=== PATIENT | male | born 1975 | race Two or more races ===

== ENCOUNTER 2018-08-19 11:47 | Inpatient (IN) | payer BC, OTHER ==
[~2018-08-19] VITALS: Ht 185.4 cm; Wt 136.6 kg
[2018-08-19] VITALS (35 sets, daily range): BP systolic 56–98; BP diastolic 27–70
[2018-08-19] MEDS ORDERED: SODIUM BICARBONATE 8.4% INJ 50ML SYRINGE ONE ×2 (11:56→12:20)
[2018-08-19] MEDS ORDERED: MIDAZOLAM DRIP 50 mg/50mL 50 ML IV ONE (12:00)
[2018-08-19] MEDS ORDERED: methylPREDNISolone SOD SUCC 125 MG/2 ML VL ONE (12:02)
[2018-08-19] MEDS ORDERED: NOREPINEPHRINE 8 MG/250ML KIT 250 ML IV ONE (12:06)
[2018-08-19] MEDS: MIDAZOLAM DRIP 50 mg/50mL 50 ML IV SCH (12:09)
[2018-08-19] MEDS: NOREPINEPHRINE 8 MG/250ML KIT 250 ML IV SCH (12:11)
[2018-08-19] MEDS ORDERED: PANTOPRAZOLE 80 MG in SODIUM CHL 0.9% 60 ML IV ONE ×2 (12:15→12:30)
[2018-08-19] MEDS ORDERED: OCTREOTIDE ACETATE 100 MCG in SODIUM CHL 0.9% 50 ML IV ONE (12:15)
[2018-08-19] MEDS ORDERED: EPINEPHrine HCL 1 MG/10 ML SYRG ONE ×2 (12:19→12:34)
[2018-08-19 12:20] LABS: Hemoglobin 13.3 g/dL (13.5-17.5); Red Cell Distribution Width 15.7 % (11.8-14.3)
[2018-08-19 12:21] LABS: Hematocrit 44.5 % (41.0-53.0); Mean Corpuscular Hemoglobin 30.3 pg (28.0-32.0); Mean Corpuscular Hgb Conc. 29.9 g/dL (32.0-36.0); Mean Corpuscular Volume 101.2 fL (80.0-100.0); Platelet Count (auto) 224 10^3/uL (140-450); Red Blood Cells 4.39 10^6/uL (4.5-5.90); White Blood Cell 15.7 10^3/uL (4.4-10.8)
[2018-08-19 12:22] LABS: Basophils % (manual) 0 (0.0-2.0); Blast Cells 0; Eosinophils % (manual) 0 (0-7); Promyelocytes % 0; Reactive Lymphocytes 0
[2018-08-19] MEDS ORDERED: THIAMINE 100mg/ml INJ (200mg/2ml VIAL) IV ONE (12:30)
[2018-08-19] MEDS ORDERED: OCTREOTIDE ACETATE 500 MCG in SODIUM CHL 0.9% 99 ML IV SCH (12:30)
[2018-08-19] MEDS ORDERED: EPINEPHrine HCL INJECTION 4 MG in SODIUM CHL 0.9% 250 ML IV ONE (12:30)
[2018-08-19 12:37] LABS: Albumin 3.1 g/dL (3.4-5.0)
[2018-08-19 12:47] LABS: BUN/Creatinine Ratio 13.7; Bilirubin, Total 0.7 mg/dL (0.2-1.0); Total Protein 6.8 g/dL (6.4-8.2)
[2018-08-19 12:51] LABS: Potassium 6.4 mmol/L (3.5-5.1)
[2018-08-19] MEDS ORDERED: ALBUTEROL SULF 2.5 MG/0.5ML(0.5%) NEB SOLN NEB STA (12:51)
[2018-08-19] MEDS ORDERED: DEXTROSE (50%) 50ML SYRG IV ONE ×2 (13:00→18:59)
[2018-08-19] MEDS ORDERED: SODIUM ZIRCONIUM CYCL 10 GM PAK PO ONE (13:00)
[2018-08-19] MEDS ORDERED: CALCIUM GLUC 4.65meq/50ml D5AE 50 ML IV ONE (13:00)
[2018-08-19] MEDS ORDERED: SODIUM BICARBONATE 8.4% INJ 50ML SYRINGE IV ONE ×2 (13:00→18:59)
[2018-08-19] MEDS ORDERED: EPINEPHrine HCL 1 MG/10 ML SYRG IV ONE ×7 (13:00→18:59)
[2018-08-19] MEDS ORDERED: SODIUM BICARBONATE 8.4 % INJ 50ML VIAL IV ONE ×2 (13:00→14:00)
[2018-08-19] MEDS ORDERED: InsuLIN REG 1unit/0.01ml Soln (100units/ml) IV ONE (13:00)
[2018-08-19] MEDS ORDERED: methylPREDNISolone SOD SUCC 125 MG/2 ML VL IV ONE (13:00)
[2018-08-19 13:02] LABS: Lactic Acid w/Reflex 18.3 mmol/L (0.4-2.0)
[2018-08-19 13:06] LABS: Urine Amorphous Crystal FEW /hpf (None Seen); Urine Bacteria FEW /hpf (None Seen); Urine Blood TRACE /uL (Negative); Urine Specific Gravity 1.024 (1.001-1.035); Urine WBC 5 /hpf (0 - 3)
[2018-08-19] MEDS ORDERED: SODIUM CHLORIDE 0.9% 1,000 ML IV ONE ×4 (13:15→16:00)
[2018-08-19] MEDS ORDERED: SODIUM BICARBONATE 50ML VIAL 150 ML in SOD CHL 0.45% 1,000 ML IV ONE ×2 (13:30→15:00)
[2018-08-19] MEDS: MULTIPLE VITAMIN 10 ML, MAGNESIUM SULF SDV 50% 8 MEQ, THIAMINE INJ 100 MG in SODIUM CHL... IV SCH (13:43)
[2018-08-19] MEDS ORDERED: PHENYLEPHRINE INJ 20 MG in D5W 5% 248 ML IV ONE (13:45)
[2018-08-19] MEDS: SODIUM BICARBONATE 50ML VIAL 150 ML in SOD CHL 0.45% 1,000 ML IV SCH ×2 (14:00→20:52)
--- NOTE | 2018-08-19 14:30 | NUR ---
TRANSPORTED PT TO CT, PT CONNECTED TO EMERGENCY VETERINARY TECHNICIAN, SPO2 97%, HR 71, RR 22. NO INCIDENCE REPORTED. PLACED PT ON PREVIOUS VENT SETTINGS. WILL CONTINUE TO MONITOR PT.
[2018-08-19 15:01] LABS: Band Neutrophils % (manual) 7; Lymphocytes % (manual) 24 (10.0-50.0); Metamyelocytes % 2; Monocytes % (manual) 8 (0-12); Myelocytes % 1
[2018-08-19] MEDS ORDERED: VANCOMYCIN 1GM/250ML 250 ML IV ONE (15:15)
[2018-08-19] MEDS ORDERED: PIPERACILLIN-TAZOB 3.375GM 100 ML IV ONE (15:15)
[2018-08-19] MEDS ORDERED: SODIUM BICARBONATE 50ML VIAL 150 ML in SOD CHL 0.45% 1,000 ML IV SCH ×4 (15:30)
[2018-08-19] MEDS ORDERED: NITROGLYCERIN 0.4 MG SL TAB SL PRN (16:15)
[2018-08-19] MEDS ORDERED: MORPHINE SULF INJ 2 MG/ML SYRINGE 1ML IV PRN (16:15)
[2018-08-19] MEDS ORDERED: PIPERACILLIN-TAZOB 2.25GM 50 ML IV ONE (16:15)
[2018-08-19] MEDS ORDERED: ALBUTEROL SULF 2.5 MG/0.5ML(0.5%) NEB SOLN NEB PRN (16:15)
[2018-08-19 16:25] LABS: Amphetamine Screen, Urine NEGATIVE (NEGATIVE); Barbiturate Scree,Urine NEGATIVE (NEGATIVE); Benzodiazephine Screen, Urine NEGATIVE (NEGATIVE); Cannabinoid Screen, Urine NEGATIVE (NEGATIVE); Cocaine Screen, Urine NEGATIVE (NEGATIVE); Opiate Scree,Urine NEGATIVE (NEGATIVE); Phencyclidine Screen, Urine NEGATIVE (NEGATIVE)
[2018-08-19] MEDS: CLINDAMYCIN 600MG IV 50 ML IV SCH ×2 (16:30→22:00)
[2018-08-19 16:45] LABS: Albumin 2.4 g/dL (3.4-5.0); Calcium 7.3 mg/dL (8.5-10.1); Potassium 5.4 mmol/L (3.5-5.1)
--- NOTE | 2018-08-19 16:55 | NUR ---
UNABLE TO DRAW ABG DUE TO PT'S LOW BP, RN NOTIFIED. WILL INFORMED NOC RT.
--- NOTE | 2018-08-19 17:00 | NUR ---
TRANSPORTED PT FROM ER TO ICU ON 100% FIO2, PEEP VALVE CONNECTED TO AMBUBAG SET AT 8CMH20. TRANSPORTED WITH NO INCIDENT REPORTED.
[2018-08-19 17:08] LABS: BUN/Creatinine Ratio 13.7; Bilirubin, Total 1.7 mg/dL (0.2-1.0); Total Protein 5.9 g/dL (6.4-8.2)
[2018-08-19 17:33] LABS: Lactic Acid w/Reflex 19.7 mmol/L (0.4-2.0)
--- NOTE | 2018-08-19 17:50 | NUR ---
chief medical technologist at bedside.
[2018-08-19 17:52] LABS: INR > 10 (0.9-1.15); Partial Thromboplastin Time > 170.0 sec (23.64-32.05)
--- NOTE | 2018-08-19 17:54 | NUR ---
Hospitalist paged, regarding patient's critical labs, awaiting call back.
--- NOTE | 2018-08-19 18:00 | NUR ---
Patient is guppy breathing, oxygen saturation is 84% On 100% FIO2. Patient is hypotensive, Levophed and Mike increased per protocol. Blood noted coming form patient's mouth, ears, and eyes. Hospitalist paged, awaiting call back.
[2018-08-19] MEDS ORDERED: PHYTONADIONE (VIT K)10 MG/ML 1ML VIAL SUBCUT ONE (18:15)
--- NOTE | 2018-08-19 18:20 | NUR ---
MISSY Alatorre updated regarding patients currents status, orders received.
[2018-08-19] MEDS: VASOPRESSIN 50 UNITS in D5W 5% 247.5 ML IV SCH (18:40)
[2018-08-19] MEDS ORDERED: PHENYLEPHRINE IV 250 ML IV ONE ×2 (18:43→20:57)
[2018-08-19] MEDS: PANTOPRAZOLE 40 MG/10 ML VIAL INJ IV SCH ×2 (18:45→22:00)
[2018-08-19] MEDS: PHENYLEPHRINE INJ 20 MG in SODIUM CHL 0.9% 250 ML IV SCH (18:46)
[2018-08-19] MEDS: IPRATROPIUM BROM 0.5 MG/2.5ML INH SOL NEB SCH (18:51)
[2018-08-19] MEDS: ALBUTEROL SULF 2.5 MG/0.5ML(0.5%) NEB SOLN NEB SCH (18:51)
--- NOTE | 2018-08-19 18:55 | NUR ---
Dr. Martin at bedside.
[2018-08-19] MEDS ORDERED: CALCIUM CHLOR(10%) 100MG/ML 10ML SYRINGE IV ONE (18:59)
[2018-08-19] MEDS ORDERED: MAGNESIUM SULF 50% 40 MEQ/10 ML VL IV ONE (18:59)
[2018-08-19 19:22] LABS: Basophils # (auto) 0 uL; Basophils % (auto) 0.2 % (0.0-2.0); Eosinophils # (auto) 0 uL; Eosinophils % (auto) 0.1 % (0.0-7.0); Hematocrit 34.4 % (41.0-53.0); Hemoglobin 11.1 g/dL (13.5-17.5); Lymphocytes # (auto) 1.9 uL; Mean Corpuscular Hemoglobin 31.5 pg (28.0-32.0); Mean Corpuscular Hgb Conc. 32.2 g/dL (32.0-36.0); Mean Corpuscular Volume 97.9 fL (80.0-100.0); Monocytes # (auto) 0.3 uL; Monocytes % (auto) 2.8 % (0.0-12.0); Neutrophils # (auto) 10.1 uL; Neutrophils % (auto) 81.9 % (37.0-80.0); Nucleated Red Blood Cells % 0.3 %; Platelet Count (auto) 124 10^3/uL (140-450); Red Blood Cells 3.51 10^6/uL (4.5-5.90); Red Cell Distribution Width 15.2 % (11.8-14.3); White Blood Cell 12.3 10^3/uL (4.4-10.8)
[2018-08-19] MEDS ORDERED: DOPamine 1600MCG/ML D5W 250 ML IV ONE ×3 (19:29→22:43)
[2018-08-19] MEDS: ALBUMIN 25% 100 ML IV SCH ×2 (20:00→20:37)
[2018-08-19] MEDS: PHENYLEPHRINE INJ 80 MG in D5W 5% 250 ML IV SCH (20:45)
[2018-08-19] MEDS ORDERED: PHENYLEPHRINE HCL 10 MG/ML VL ONE (21:04)
[2018-08-19] MEDS ORDERED: EPINEPHrine HCL 250 ML IV ONE (21:05)
[2018-08-19] MEDS ORDERED: PHENYLEPHRINE IV 500 ML IV ONE (21:05)
[2018-08-20] VITALS (110 sets, daily range): BP systolic 78–152; BP diastolic 25–73
[2018-08-20] MEDS: IPRATROPIUM BROM 0.5 MG/2.5ML INH SOL NEB SCH ×5 (00:29→23:50)
[2018-08-20] MEDS: ALBUTEROL SULF 2.5 MG/0.5ML(0.5%) NEB SOLN NEB SCH ×6 (00:29→23:53)
[2018-08-20] MEDS ORDERED: DOPamine 1600MCG/ML D5W 250 ML IV ONE ×2 (00:45→02:19)
[2018-08-20 01:35] LABS: Hematocrit 29.6 % (41.0-53.0); Hemoglobin 9.5 g/dL (13.5-17.5); Mean Corpuscular Hemoglobin 31.2 pg (28.0-32.0); Mean Corpuscular Volume 97.7 fL (80.0-100.0); Platelet Count (auto) 86 10^3/uL (140-450); Red Blood Cells 3.03 10^6/uL (4.5-5.90); Red Cell Distribution Width 15.1 % (11.8-14.3); White Blood Cell 7.6 10^3/uL (4.4-10.8)
[2018-08-20 01:50] LABS: Basophils % (manual) 0 (0.0-2.0); Blast Cells 0; Eosinophils % (manual) 0 (0-7); Metamyelocytes % 0; Myelocytes % 0; Promyelocytes % 0; Reactive Lymphocytes 0
[2018-08-20 01:52] LABS: Albumin 2.7 g/dL (3.4-5.0); BUN/Creatinine Ratio 10.5; Potassium 4.2 mmol/L (3.5-5.1)
[2018-08-20 02:01] LABS: INR > 10 (0.9-1.15); Partial Thromboplastin Time > 170.0 sec (23.64-32.05)
[2018-08-20 02:18] LABS: Bilirubin, Total 1.4 mg/dL (0.2-1.0); Total Protein 5.1 g/dL (6.4-8.2)
[2018-08-20 02:28] LABS: Calcium 5.8 mg/dL (8.5-10.1)
[2018-08-20] MEDS: DOPamine 1600MCG/ML D5W 250 ML IV SCH ×6 (02:42→22:20)
[2018-08-20] MEDS: PHENYLEPHRINE INJ 20 MG in SODIUM CHL 0.9% 250 ML IV SCH (03:06)
[2018-08-20 03:47] LABS: Band Neutrophils % (manual) 21; Lymphocytes % (manual) 22 (10.0-50.0); Monocytes % (manual) 2 (0-12)
[2018-08-20] MEDS ORDERED: EPINEPHrine HCL 250 ML IV ONE (03:49)
[2018-08-20] MEDS ORDERED: VASOPRESSIN 20 UNIT/ML ONE (03:56)
[2018-08-20] MEDS: VASOPRESSIN 50 UNITS in D5W 5% 247.5 ML IV SCH ×2 (04:20→16:07)
[2018-08-20] MEDS: EPINEPHrine HCL 250 ML IV SCH ×3 (05:20→18:24)
[2018-08-20 05:27] LABS: Hemoglobin 8.8 g/dL (13.5-17.5)
[2018-08-20 05:29] LABS: Hematocrit 27.8 % (41.0-53.0)
[2018-08-20] MEDS ORDERED: PHENYLEPHRINE IV 250 ML IV ONE (06:17)
[2018-08-20] MEDS ORDERED: NOREPINEPHRINE BITARTRATE 2 ML IV ONE (06:41)
--- NOTE | 2018-08-20 06:43 | NUR ---
Respiratory note: RECEIVED PATIENT ON V20 V200 VENT ORALLY INTUBATED WITH AN 8.0 ETT SECURED VIA KENNY AT THE 24CM MARKING AT THE LIP, AND MECHANICALLY VENTILATED WITH THE ABOVE CHARTED SETTINGS. SPO2 98%, LUNG SOUNDS CLEAR/DIM T/O, NO SECRETIONS WHEN SUCTIONED. SKIN IS COOL/DRY TO THE TOUCH AND IS INTACT NEAR KENNY SITE. THERE IS A NGT IN THE RIGHT NARE AND SECURED TO THE NOSE. NO CENTRAL OR MIDLINE ACCESS NOTED. NON PITTING EDEMA NOTED IN BILATERAL UPPER AND LOWER EXTREMITIES. AM CXR UNAVAILABLE TO VIEW AT THIS TIME. PATIENT IS UNRESPONSIVE TO BOTH VERBAL/TACTILE STIMULI AND IS SEDATED ON A VERSED DRIP. HE IS RESTING COMFORTABLY AND TOLERATING VENT WELL, NO CHANGES MADE. VENT PLUGGED INTO RED OUTLET AND ALL ALARMS ARE SET AND AUDIBLE WILL CONTINUE TO ASSESS PATIENT WELL VENTILATOR FUNCTION. [facility] RUN INLINE.
[2018-08-20] MEDS ORDERED: SODIUM BICARBONATE 8.4 % INJ 50ML VIAL IV ONE ×2 (06:45)
[2018-08-20] MEDS: NOREPINEPHRINE 8 MG/250ML KIT 250 ML IV SCH ×2 (06:46→11:38)
--- NOTE | 2018-08-20 08:04 | NUR ---
PT UNSTABLE FOR TRANSFER TO CT AT THIS TIME PER ZACHARY FLOREZ.
--- NOTE | 2018-08-20 08:15 | NUR ---
DR ZEPEDA UPDATING FAMILY IN WAITING ROOM DR ZEPEDA DISCUSSING PLAN OF CARE WITH PATIENT AND ALL AVAILABLE FAMILY MEMBERS IN THE ICU WAITING ROOM. FAMILY VERBALIZED UNDERSTANDING. NO ORDERS GIVEN AT THIS TIME.
--- NOTE | 2018-08-20 08:30 | NUR ---
Respiratory note: FIO2 DECREASED TO 60% AT THIS TIME. VIKKI SHARMA MADE AWARE OF CHANGE.
--- NOTE | 2018-08-20 08:33 | NUR ---
NEPHROLOGY AT BEDSIDE DR LOU DISCUSSED PLAN OF CARE WITH PATIENT FAMILY. NO ORDERS AT THIS TIME. Addendum: 08/20/18 at 0915 by Raven Benitez RN DISCUSSED DIALYSIS WITH THE FAMILY. VERBAL ORDERS FOR KELVIN CATH PLACEMENT RECEIVED. FAMILY VERBALIZED UNDERSTANDING AND AUTHORIZED DIALYSIS TO PROCEED. DR LOU STATED HE WOULD BE IN LATER TODAY FOR ORDERS.
--- NOTE | 2018-08-20 08:40 | NUR ---
RETURN CALL FROM DR BOBO UPDATED ON PATIENT CURRENT STATUS AND ABG RESULTS, NO ORDERS AT THIS TIME - DR CHASE TO FOLLOW UP.
[2018-08-20] MEDS: SODIUM BICARBONATE 50ML VIAL 150 ML in SOD CHL 0.45% 1,000 ML IV SCH ×4 (08:53→23:37)
[2018-08-20] MEDS: PHENYLEPHRINE INJ 80 MG in D5W 5% 250 ML IV SCH ×5 (08:57→17:10)
[2018-08-20] MEDS ORDERED: CALCIUM GLUC 4.65meq/50ml D5AE 50 ML IV ONE (09:00)
--- NOTE | 2018-08-20 09:21 | NUR ---
THIRD UNIT OF FFP COMPLETED VSS AND DOCUMENTED. NO S/S OF TRANSFUSION REACTION NOTED.
--- NOTE | 2018-08-20 09:23 | NUR ---
Respiratory note: AM CXR ASSESSED AND IT SHOWS ETT IN SATISFACTORY POSITION, SITTING APPROX 4CM ABOVE THE YARIEL. NO INDICATION TO ADJUST TUBE.
--- NOTE | 2018-08-20 09:26 | NUR ---
Midline Placement: Patient educated on need for midline placement. All risks and benefits explained and all questions and concerns addresses prior to procedure. 18g/8cm midline inserted via right basilic vein using Ultrasound. Sterile technique utilized. Blood return obtained from the lumen and flushed easily with NS using proper technique. Midline secured with saline lock; biodisc and occlusive dressing applied. Primary RN notified. Midline lot # [id number]. x1 attempt. Very small vessels due to low blood pressure with multiple vasopressors.
[2018-08-20] MEDS ORDERED: PANTOPRAZOLE 40 MG/10 ML VIAL INJ IV SCH (10:00)
--- NOTE | 2018-08-20 10:15 | NUR ---
Respiratory note: FIO2 DECREASED TO 50% AT THIS TIME. VIKKI SHARMA MADE AWARE OF CHANGES.
--- NOTE | 2018-08-20 10:26 | NUR ---
Respiratory note: VENT CIRCUIT CHANGED TO HEATED WIRE AT THIS TIME. SST RAN AND PASSED.
--- NOTE | 2018-08-20 11:02 | NUR ---
CONSUMER LOAN UNDERWRITER AT BEDSIDE
[2018-08-20] MEDS: PIPERACILLIN-TAZOB 2.25GM 50 ML IV SCH ×4 (11:12→23:38)
--- NOTE | 2018-08-20 11:37 | NUR ---
FAMILY MEMBERS REMAIN AT BEDSIDE MULTIPLE FAMILY MEMBERS IN ICU WAITING ROOM.
--- NOTE | 2018-08-20 11:44 | NUR ---
GI AT BEDSIDE UPDATED ON PATIENT'S STATUS, DRIPS AND BLOOD OUTPUT THROUGH NGT/ORAL AND NASAL. NO ORDERS AT THIS TIME, DR ESQUIVEL TO FOLLOW.
--- NOTE | 2018-08-20 11:47 | NUR ---
Respiratory note: FIO2 DECREASED TO 40% AT THIS TIME. VIKKI SHARMA MADE AWARE OF CHANGE.
[2018-08-20 11:58] LABS: Eosinophils # (auto) 0 uL; Nucleated Red Blood Cells % 0.2 %; Red Blood Cells 2.12 10^6/uL (4.5-5.90)
--- NOTE | 2018-08-20 12:00 | NUR ---
WOUND CARE NOTE: PATIENT ADDED TO SKIN INTEGRITY MONITORING FOR INTUBATION STATUS/LOW LINDSAY SCORE OF 10. PATIENT WAS ADMITTED TO [facility] WITH DIAGNOSIS OF CARDIAC ARREST WITH CPR IN PROGRESS. PATIENT WAS FOUND DOWN BY PARAMEDICS FOR UNKNOWN TIME. HE IS INTUBATED, NON RESPONSIVE. MULTIPLE FAMILY MEMBERS AT BEDSIDE. PATIENT IS WOUND FREE AT THIS TIME, BUT CLOSE SKIN ASSESSMENTS SHOULD BE DONE, PATIENT WAS FOUND DOWN ON GROUND. DEEP TISSUES INJURIES MAY NOT BE EVIDENT FOR SEVERAL HOURS TO DAYS. BEDSIDE NURSE TO NOTIFY WOUND CARE IF ERYTHEMA/ECCHYMOSIS BECOMES EVIDENT ON ANY BONY PROMINENCE. RECOMMEND: FREQUENT TURN SCHEDULE Q 2 HOURS, PRN CONDITION PERMITS, WITH PRESSURE REDISTRIBUTION USING PILLOWS/WEDGES, BID/PRN APPLICATION WITH MOISTURE BARRIER CREAM, COVERING UPPER MEDIAL SACRUM WITH OPTIFOAM GENTLE SACRAL DRESSING PREVENTATIVE, DIETARY CONSULT, CONTINUED MONITORING BY WOUND CARE TEAM. SKIN/WOUND CARE PLAN IMPLEMENTED AT THIS TIME.
[2018-08-20 12:02] LABS: Basophils # (auto) 0.1 uL; Basophils % (auto) 1.2 % (0.0-2.0); Eosinophils % (auto) 0.3 % (0.0-7.0); Lymphocytes # (auto) 0.9 uL; Lymphocytes % (auto) 15.7 % (10.0-50.0); Mean Corpuscular Hemoglobin 31.2 pg (28.0-32.0); Mean Corpuscular Volume 103.9 fL (80.0-100.0); Monocytes # (auto) 0.2 uL; Monocytes % (auto) 2.5 % (0.0-12.0); Neutrophils # (auto) 4.8 uL; Neutrophils % (auto) 80.3 % (37.0-80.0); Platelet Count (auto) 60 10^3/uL (140-450)
[2018-08-20 12:07] LABS: Hemoglobin 6.6 g/dL (13.5-17.5)
--- NOTE | 2018-08-20 12:09 | NUR ---
PAGED DR CIFUENTES REGARDING HGB 6.6, AWAITING CALL BACK.
--- NOTE | 2018-08-20 12:21 | NUR ---
CARLTON FLOREZ FROM [facility] DIALYSIS AT BEDSIDE, AWARE THERE IS NO DIALYSIS ACCESS YET. OBTAINED NUMBER [phone] AND WILL CALL WHEN ACCESS OBTAINED. NURSE TO ALSO CALL COORDINATOR NHI AT [phone] TO VERIFY DIALYSIS. WILL NOTIFY PRIMARY RN ZACHARY WHEN BACK FROM LUNCH BREAK.
[2018-08-20 12:33] LABS: Partial Thromboplastin Time 80.2 sec (23.64-32.05)
[2018-08-20 12:34] LABS: INR > 8.0 (0.9-1.15)
--- NOTE | 2018-08-20 12:39 | NUR ---
PAGED DR CIFUENTES FOR SECOND TIME REGARDING HGB LEVEL
--- NOTE | 2018-08-20 12:41 | NUR ---
SPOKE WITH DR PRINCE MATHIS HGB LEVEL. NO NEW ORDERS UNTIL HE SPEAKS WITH .
[2018-08-20] MEDS: MIDAZOLAM DRIP 50 mg/50mL 50 ML IV SCH (12:47)
[2018-08-20] MEDS: CLINDAMYCIN 600MG IV 50 ML IV SCH ×3 (12:49→21:30)
--- NOTE | 2018-08-20 12:56 | NUR ---
FAMILY AT BEDSIDE/PAGED DR CIFUENTES PATIENT'S SPOUSE AT BEDSIDE, PAGED DR CIFUENTES TO NOTIFY OF SPOUSE AT BEDSIDE, VERBALIZED UNDERSTANDING.
--- NOTE | 2018-08-20 13:04 | NUR ---
DR CHASE AT BEDSIDE UPDATED ON PATIENT'S STATUS, DRIPS, LABS AND IMAGING. PENDING ORDERS. Addendum: 08/20/18 at 1329 by Raven Benitez RN DR CHASE, DISCUSSED PLAN OF CARE AND PROGNOSIS WITH PATIENT'S SPOUSE AND ELDEST BROTHER AT BEDSIDE, ORDERS TO DECREASE PEEP TO 5 RECEIVED, [place].
[2018-08-20 13:07] LABS: Calcium 10.6 mg/dL (8.5-10.1); Magnesium 2.5 mg/dL (1.6-2.6); Potassium 3.9 mmol/L (3.5-5.1)
[2018-08-20 13:27] LABS: Albumin 2.2 g/dL (3.4-5.0); BUN/Creatinine Ratio 8.5; Bilirubin, Total 1.7 mg/dL (0.2-1.0); Total Protein 4.3 g/dL (6.4-8.2)
--- NOTE | 2018-08-20 13:29 | NUR ---
HOSPITALIST AT BEDSIDE DR CIFUENTES DISCUSSED PROGNOSIS AND PLAN OF CARE WITH PATIENT'S SPOUSE AND ELDEST BROTHER AT BEDSIDE, FAMILY MEMBERS REQUESTING CONTINUED ARE AND FULL CODE AT THIS TIME. ORDERS RECEIVED.
--- NOTE | 2018-08-20 13:44 | NUR ---
Respiratory note: PEEP DECREASED TO [address] CHASE'S ORDER. VIKKI SHARMA MADE AWARE OF CHANGE.
[2018-08-20] MEDS ORDERED: PHYTONADIONE (VIT K)10 MG/ML 1ML VIAL SUBCUT ONE ×3 (13:45→22:00)
--- NOTE | 2018-08-20 14:06 | NUR ---
CALL RECEIVED FROM PHARMACISTS/PAGED HOSPITALIST PER PHARMACISTS, VITAMIN K SQ RECOMMENDED DOSE IS 10 MG BID - REQUESTED TO CHANGE. PAGED DR CIFUENTES, AWAITING RESPONSE.
--- NOTE | 2018-08-20 14:13 | NUR ---
[facility] SPOKE WITH DONNIE - POSSIBLE CANDIDATE, COORDINATOR WILL BE HERE LATER THIS EVENING. REFENCE# [id number].
--- NOTE | 2018-08-20 14:30 | NUR ---
SECOND PAGE TO HOSPITALIST TO NOTIFY OF PHARMACY RECOMMENDATIONS REGARDING VITAMIN K, AWAITING RESPONSE.
[2018-08-20] MEDS ORDERED: OCTREOTIDE ACETATE 100 MCG in SODIUM CHL 0.9% 50 ML IV ONE (14:45)
--- NOTE | 2018-08-20 14:51 | NUR ---
1ST UNIT PRBC TRANSFUSING/DR ESQUIVEL AT BEDSIDE FIRST UNIT PRBC TRANSFUSING, VSS AND DOCUMENTED - FAMILY AT BEDSIDE. WILL MONITOR FOR S/S OF TRANSFUSION REACTION. DR ESQUIVEL AT BEDSIDE, UPDATED ON PATIENT'S STATUS. ORDERS TO BE ENTERED BY DR ESQUIVEL.
--- NOTE | 2018-08-20 15:00 | NUR ---
PAGED DR LOU TO NOTIFY OF NO DIALYSIS CATHETER PLACEMENT DUE TO INCREASED RISK OF BLEEDING PER DR CIFUENTES. AWAITING RESPONSE.
--- NOTE | 2018-08-20 15:09 | NUR ---
15 MIN TRANSFUSION REASSESSMENT VSS AND DOCUMENTED, NO S/S NOTED OF TRANSFUSION REACTION. FAMILY AT BEDSIDE.
--- NOTE | 2018-08-20 15:16 | NUR ---
THIRD PAGE TO HOSPITALIST DR CIFUENTES PAGED TO NOTIFY OF PHARMACY RECOMMENDATIONS REGARDING VITAMIN K AND CRITICAL LAB VALUES, AWAITING RESPONSE.
--- NOTE | 2018-08-20 15:20 | NUR ---
RETURN CALL FROM VANE CIFUENTES UPDATED ON CRITICAL LABS, VS AND DRIPS WELL PHARMACY RECOMMENDATION ON VIT K. ORDERS RECEIVED TO CHANGE FROM VITAMIN K FROM 20 MG TO 10 MG BID.
--- NOTE | 2018-08-20 15:45 | NUR ---
BEAR MICHELLEGGER REMOVED PATIENT'S CURRENT RECTAL TEMPERATURE 98.6. REMOVED DIEGO MARTINEZGGER, WILL MONITOR. SPOUSE AT BEDSIDE.
--- NOTE | 2018-08-20 15:50 | NUR ---
SPOKE WITH DR LOU/DR RACHAEL LOU NOTIFIED OF DR CIFUENTES'S ORDER TO HOLD OFF ON DIALYSIS CATHETER PLACEMENT. DR LOU VERBALIZED DISAGREEMENT AND WANTED ER PHYSICIAN TO INSERT DIALYSIS CATHETER STAT. DR PUTNAM AWARE. PATIENT'S SPOUSE AGREED TO HAVE CATHETER PLACED AFTER ALL. SPOKE WITH DR CANO, DR CANO UPDATED ON CONSULT AND PATIENT STATUS. DR CANO TO SEE PATIENT SOON.
[2018-08-20] MEDS: MULTIPLE VITAMIN 10 ML, MAGNESIUM SULF SDV 50% 8 MEQ, THIAMINE INJ 100 MG in SODIUM CHL... IV SCH (16:00)
[2018-08-20] MEDS: PANTOPRAZOLE 40 MG/10 ML VIAL INJ IV SCH ×2 (16:16→21:29)
--- NOTE | 2018-08-20 16:28 | NUR ---
CARDIOLOGY AT BEDSIDE CARDIOLOGY MANAGER INSPECTION AT BEDSIDE, UPDATED ON PATIENT'S STATUS AND REASON FOR CONSULT. NO ORDERS AT THIS TIME.
[2018-08-20] MEDS ORDERED: PHENYLEPHRINE INJ 80 MG in SODIUM CHL 0.9% 250 ML IV SCH (16:41)
[2018-08-20] MEDS ORDERED: HEPARIN 1,000 UNITS/ml 1ML VIAL IV ONE ×2 (16:45→17:45)
--- NOTE | 2018-08-20 16:49 | NUR ---
ER PHYSICIAN AT BEDSIDE KELVIN CATHETER AND ARTERIAL LINE PLACEMENT.
[2018-08-20] MEDS ORDERED: DEXTROSE (50%) 50ML SYRG IV PRN ×2 (17:00→17:45)
--- NOTE | 2018-08-20 17:00 | NUR ---
1ST UNIT PRBC COMPLETED/1 UNIT FFP TRANSFUSING FIRST UNIT PRBC TRANSFUSED, ONE UNIT FFP TRANSFUSING. VSS AND DOCUMENTED, NO S/S NOTED OF TRANSFUSION REACTION. WILL MONITOR FOR S/S OF TRANSFUSION REACTION.
--- NOTE | 2018-08-20 17:17 | NUR ---
OK TO USE CATHETER/DIALYSIS NURSE AT BEDSIDE OK TO USE DIALYSIS CATHETER PER DR PUTNAM AFTER REVIEW OF PORTABLE CXR. DIALYSIS NURSE AT BEDSIDE, FAMILY AWARE.
--- NOTE | 2018-08-20 18:01 | NUR ---
BS/DR LOU AT BEDSIDE CURRENT BS 338, WILL GIVE ONE TIME DOSE OF INSULIN. DR LOU AWARE OF DIALYSIS AT BEDSIDE. NO FURTHER ORDERS GIVEN AT THIS TIME.
[2018-08-20] MEDS: OCTREOTIDE ACETATE 500 MCG in SODIUM CHL 0.9% 99 ML IV SCH (18:05)
[2018-08-20] MEDS ORDERED: InsuLIN REG 1unit/0.01ml Soln (100units/ml) IV ONE (18:15)
--- NOTE | 2018-08-20 18:33 | NUR ---
1 UNIT FFP TRANSFUSION COMPLETED VSS AND DOCUMENTED, NO S/S NOTED OF TRANSFUSION REACTION. WILL ENDORSE THE REMAINING 1 UNIT PRBC AND 1 UNIT PLATELET TO EDUCATION COURSES SALES REPRESENTATIVE RN. DIALYSIS NURSE REMAINS AT BEDSIDE.
[2018-08-20] MEDS: CALCIUM GLUC 4.65meq/50ml D5AE 50 ML IV SCH ×2 (19:30→20:30)
--- NOTE | 2018-08-20 19:30 | NUR ---
REPORT RECEIVED, ASSUMED CARE.
[2018-08-20] MEDS ORDERED: ACCU-CHEK COMFORT CURVE STRIP VI SCH (20:00)
[2018-08-20] MEDS ORDERED: InsuLIN REG 1unit/0.01ml Soln (100units/ml) SC SCH (20:00)
[2018-08-20] MEDS: ACCU-CHEK COMFORT CURVE STRIP VI SCH ×2 (20:28→23:37)
[2018-08-20] MEDS: InsuLIN REG 1unit/0.01ml Soln (100units/ml) SC SCH ×2 (20:28→23:38)
[2018-08-20] MEDS: NOREPINEPHRINE BITARTRATE 32 MG in D5W 5% 218 ML IV SCH (20:29)
--- NOTE | 2018-08-20 20:42 | NUR ---
TRIED CALLING BLOOD BANK AND LAB NO ANSWER, NOTIFIED FARM MACHINERY ASSEMBLER. WILL TRY AGAIN.
--- NOTE | 2018-08-20 21:55 | NUR ---
RX CALLED WANTED ME CLARIFY ORDER FOR CA GLU IVPB ORDER PLACED THIS EVENING WHEN PT CA 10.6. LEFT MESSAGE WITH ANSWERING SERVICE.
[2018-08-20] MEDS ORDERED: FAMOTIDINE (10MG/ML) 2ML VL IV SCH (22:00)
--- NOTE | 2018-08-20 22:26 | NUR ---
ORDER FOR CA GLU CANCELLED PER MD MONTES.
[2018-08-21] VITALS (104 sets, daily range): BP systolic 54–154; BP diastolic 37–70
[2018-08-21 00:17] LABS: Basophils # (auto) 0 uL; Eosinophils # (auto) 0.1 uL; Mean Corpuscular Volume 90.9 fL (80.0-100.0); Monocytes # (auto) 0.2 uL
[2018-08-21 00:18] LABS: Basophils % (auto) 0.2 % (0.0-2.0); Eosinophils % (auto) 0.9 % (0.0-7.0); Hematocrit 22.2 % (41.0-53.0); Hemoglobin 7.5 g/dL (13.5-17.5); Lymphocytes # (auto) 0.7 uL; Lymphocytes % (auto) 7.1 % (10.0-50.0); Mean Corpuscular Hemoglobin 30.5 pg (28.0-32.0); Mean Corpuscular Hgb Conc. 33.6 g/dL (32.0-36.0); Monocytes % (auto) 2.1 % (0.0-12.0); Neutrophils % (auto) 89.7 % (37.0-80.0); Nucleated Red Blood Cells % 0.2 %; Platelet Count (auto) 72 10^3/uL (140-450); Red Blood Cells 2.44 10^6/uL (4.5-5.90); Red Cell Distribution Width 15.2 % (11.8-14.3)
[2018-08-21] MEDS: OCTREOTIDE ACETATE 500 MCG in SODIUM CHL 0.9% 99 ML IV SCH ×2 (00:45→15:21)
--- NOTE | 2018-08-21 01:36 | NUR ---
PLACED PT ON WARMING MEASURES.
--- NOTE | 2018-08-21 01:45 | NUR ---
NOTIFIED HOSPITALIST OF CBC RESULTS POST TRANSFUSION, NO NEW ORDERS. WILL CONT TO MONITOR AND GIVE IN REPORT.
[2018-08-21] MEDS: DOPamine 1600MCG/ML D5W 250 ML IV SCH ×2 (01:48→11:08)
--- NOTE | 2018-08-21 02:24 | NUR ---
NOTIFIED HOUSE THE NEED FOR SANDOSTATIN AND VASOPRESSIN GTT'S.
[2018-08-21] MEDS ORDERED: OCTREOTIDE ACETATE 500 MCG/ML VL ONE (02:26)
--- NOTE | 2018-08-21 02:29 | NUR ---
[facility] CALLED: SPOKE WITH CODY GAVE UPDATE ON PT. THEY WILL CONT TO FOLLOW PT. WILL PASS ON IN REPORT.
[2018-08-21] MEDS ORDERED: VASOPRESSIN 20 UNIT/ML ONE (02:40)
[2018-08-21] MEDS: PHENYLEPHRINE INJ 80 MG in D5W 5% 250 ML IV SCH ×4 (02:58→23:45)
[2018-08-21] MEDS: EPINEPHrine HCL 250 ML IV SCH ×3 (02:59→15:21)
[2018-08-21] MEDS: ACCU-CHEK COMFORT CURVE STRIP VI SCH ×5 (04:12→20:20)
[2018-08-21] MEDS: InsuLIN REG 1unit/0.01ml Soln (100units/ml) SC SCH ×5 (04:13→20:20)
[2018-08-21 04:26] LABS: Albumin 2.3 g/dL (3.4-5.0); BUN/Creatinine Ratio 6.4; Potassium 3.9 mmol/L (3.5-5.1)
[2018-08-21 04:41] LABS: Calcium 5.6 mg/dL (8.5-10.1); INR > 8.0 (0.9-1.15)
[2018-08-21 04:53] LABS: Bilirubin, Total 3.2 mg/dL (0.2-1.0); Total Protein 4.2 g/dL (6.4-8.2)
[2018-08-21 04:56] LABS: Basophils # (auto) 0 uL; Basophils % (auto) 0.1 % (0.0-2.0); Hematocrit 21.3 % (41.0-53.0); Hemoglobin 7.1 g/dL (13.5-17.5); Mean Corpuscular Volume 91.1 fL (80.0-100.0); Monocytes # (auto) 0.2 uL; Nucleated Red Blood Cells % 0.1 %; Red Blood Cells 2.34 10^6/uL (4.5-5.90); Red Cell Distribution Width 15.3 % (11.8-14.3); White Blood Cell 11.4 10^3/uL (4.4-10.8)
[2018-08-21 04:59] LABS: Eosinophils # (auto) 0.1 uL; Eosinophils % (auto) 1.1 % (0.0-7.0); Lymphocytes # (auto) 0.5 uL; Lymphocytes % (auto) 4.6 % (10.0-50.0); Mean Corpuscular Hemoglobin 30.2 pg (28.0-32.0); Mean Corpuscular Hgb Conc. 33.1 g/dL (32.0-36.0); Monocytes % (auto) 1.8 % (0.0-12.0); Neutrophils # (auto) 10.6 uL; Neutrophils % (auto) 92.4 % (37.0-80.0); Platelet Count (auto) 59 10^3/uL (140-450)
--- NOTE | 2018-08-21 05:13 | NUR ---
NOTIFIED HOSPITALIST OF CA 5.6, OBTAINED NEW ORDERS. WILL CONT TO MONITOR AND GIVE IN REPORT.
[2018-08-21] MEDS ORDERED: CALCIUM CHL 100MG/ML 1,000 MG in D5W 5% 100 ML IV ONE (05:15)
[2018-08-21] MEDS: SODIUM BICARBONATE 50ML VIAL 150 ML in SOD CHL 0.45% 1,000 ML IV SCH ×4 (05:35→22:35)
[2018-08-21] MEDS: CLINDAMYCIN 600MG IV 50 ML IV SCH ×3 (05:35→21:55)
[2018-08-21] MEDS: PIPERACILLIN-TAZOB 2.25GM 50 ML IV SCH ×4 (05:36→23:40)
[2018-08-21] MEDS ORDERED: CALCIUM CHLOR(10%) 100MG/ML 10ML SYRINGE IV ONE (06:01)
[2018-08-21] MEDS: IPRATROPIUM BROM 0.5 MG/2.5ML INH SOL NEB SCH ×3 (06:31→18:45)
[2018-08-21] MEDS: ALBUTEROL SULF 2.5 MG/0.5ML(0.5%) NEB SOLN NEB SCH ×3 (06:31→18:45)
--- NOTE | 2018-08-21 06:53 | NUR ---
Respiratory note: RECEIVED PATIENT ON V20 V200 VENT ORALLY INTUBATED WITH AN 8.0 ETT SECURED VIA KENNY AT THE 24CM MARKING AT THE LIP, AND MECHANICALLY VENTILATED WITH THE ABOVE CHARTED SETTINGS. SPO2 95%, LUNG SOUNDS RHONCHI T/O, SCANT AMOUNT OF RED/BLOODY SECRETIONS WHEN SUCTIONED. SKIN IS WARM/DRY TO THE TOUCH AND IS INTACT NEAR KENNY SITE. THERE IS A NGT IN THE RIGHT NARE AND SECURED TO THE NOSE; LARGE AMOUNT OF BLEEDING NOTED FROM NARES. HE HAS A KELVIN CATHETER PLACED IN THE RIGHT SIDE NECK, A MIDLINE CATHETER PLACED IN THE RIGHT UPPER ARM. PITTING EDEMA NOTED IN BILATERAL UPPER AND LOWER EXTREMITIES. AM CXR UNAVAILABLE TO VIEW AT THIS TIME. PATIENT IS UNRESPONSIVE TO BOTH VERBAL/TACTILE STIMULI AND IS SEDATED ON A VERSED DRIP. HE IS RESTING COMFORTABLY AND TOLERATING VENT WELL, NO CHANGES MADE. VENT PLUGGED INTO RED OUTLET AND ALL ALARMS ARE SET AND AUDIBLE WILL CONTINUE TO ASSESS PATIENT WELL VENTILATOR FUNCTION. [facility] [facility] [employer] RUN INLINE.
--- NOTE | 2018-08-21 07:30 | NUR ---
PT UNSTABLE FOR TRANSFER TO CT AT THIS TIME.
--- NOTE | 2018-08-21 07:30 | NUR ---
OPENING SHIFT NOTE/UNABLE TO TURN REPORT RECEIVED FROM NIGHT SHIT RN, MORNING ASSESSMENT PERFORMED AND DOCUMENTED. POC REVIEWED, AT THIS TIME PATIENT IS INTUBATED, NON RESPONSIVE, PUPILS FIXED AT 5 MM. NO BABINSKI REFLEX, NO COUGH OR GAG ASSESSED, VSS AND CONTINUES INFUSING VASOPRESSORS X5 ORDERED BY MD. IV SITES PATENT, RIGHT SIDE NECK KELVIN CATHETER SITE ENFORCED BY PRIMER WATERPROOFING MACHINE ADJUSTER RN DUE TO DRAINING BLOOD THROUGH INSERTION SITE. PATIENT NOTED TO HAVE INCREASED WATERY, BRIGHT RED BLOOD DRAINING CONTINUOUSLY FROM MOUTH AND NARES - UNABLE TO TURN PATIENT AT THIS TIME DUE TO RISK OF INCREASED BLEEDING AND INSTABILITY - CHARGE NURSE COREY AND ICU DIRECTOR MELLY NOTIFIED. BILATERAL UPPER AND LOWER EXTREMITIES OFF LOADED. BED LOCKED AND IN LOWEST POSITION, SAFETY AND COMFORT PRECAUTIONS INITIATED. BVM AND SUCTION AT BEDSIDE. WILL MONITOR PATIENT CONTINUOUSLY.
--- NOTE | 2018-08-21 07:50 | NUR ---
DR LOU AT BEDSIDE UPDATED ON PATIENT'S STATUS, DRIPS, LABS AND NEURO STATUS. NO VERBAL ORDERS GIVEN AT THIS TIME. WILL CONTINUE TO MONITOR.
--- NOTE | 2018-08-21 08:15 | NUR ---
DR ZEPEDA AT BEDSIDE UPDATED ON PATIENT'S STATUS, LABS, DRIPS AND NEURO STATUS. ORDERS FOR ECG RECEIVED.
--- NOTE | 2018-08-21 08:31 | NUR ---
ECG TECH/FAMILY AT BEDSIDE PATIENT'S BROTHERS X2 AT BEDSIDE, UPDATED ON PATIENT'S STATUS. AWARE OF PENDING ECG, VERBALIZED UNDERSTANDING. ECG TECH AT BEDSIDE.
--- NOTE | 2018-08-21 09:22 | NUR ---
FAMILY AT BEDSIDE PATIENT'S SPOUSE AND BROTHERS X2 AT BEDSIDE, UPDATED ON PATIENT'S STATUS INCLUDING INCREASED BLEEDING AND NEURO STATUS. TEREZA VERBALIZED UNDERSTANDING.
--- NOTE | 2018-08-21 09:35 | NUR ---
ELECTROENCEPHALOGRAM COMPLETED AT BEDSIDE. VIKKI SHARMA NOTIFIED AND AT BEDSIDE.
--- NOTE | 2018-08-21 10:30 | NUR ---
COMFORT MEASURES/NO TURN/[facility] COMFORT MEASURES PROVIDED, PATIENT CLEANSED OF MODERATE AMOUNT BRIGHT RED BLOOD DRAINING ON FACIAL TOWELS AND GAUZE. MODERATE BRIGHT RED BLOOD SUCTIONED FROM ORAL CAVITY. WET WASHCLOTH PLACED ON EYES EYES REMAIN OPEN AND INCREASED SCLERAL EDEMA AROUND EYES TO AVOID DRYNESS OF EYES. UNABLE TO TURN PATIENT AT THIS TIME DUE TO INSTABILITY AND INCREASED BLEEDING. RECEIVED CALL FROM [facility] - UPDATE PROVIDED.
[2018-08-21] MEDS: PANTOPRAZOLE 40 MG/10 ML VIAL INJ IV SCH ×2 (11:07→21:55)
--- NOTE | 2018-08-21 11:26 | NUR ---
NUTRITION CONSULT/ASSESSMENT NOTES Please refer to link notes of nutrition screen form filed under the intervention section of the plan of care for further details. Est. Needs: 1850 kcal to 2450 kcal (15-20 kcal/kgBW), 67 gms to 84 gms pro (0.8-1.0 gms/kgIBW: 84 kg). Will continue to monitor pertinent labs and reassess nutrient need prn Thank you for this consult. Addendum: 08/21/18 at [address] Amended: Links added.
--- NOTE | 2018-08-21 11:51 | NUR ---
DR ESQUIVEL AT BEDSIDE UPDATED ON PATIENT'S STATUS, LABS, DRIPS, VS AND NEURO STATUS. ORDERS TO TRANSFUSE [address] ESQUIVEL DISCUSSED PLAN OF CARE WITH PATIENT'S ELDEST BROTHER AND PATIENT'S MOTHER AT BEDSIDE.
[2018-08-21] MEDS: MULTIPLE VITAMIN 10 ML, MAGNESIUM SULF SDV 50% 8 MEQ, THIAMINE INJ 100 MG in SODIUM CHL... IV SCH (11:54)
--- NOTE | 2018-08-21 12:00 | NUR ---
NO TURN PATIENT UNSTABLE, PATIENT CLEANSED OF BRIGHT RED BLOOD. UNSTABLE TO TURN AT THIS TIME.
--- NOTE | 2018-08-21 12:09 | NUR ---
BLOOD BANK TO THAW OUT FIRST UNIT FFP. WILL NOTIFY THIS NURSE WHEN AVAILABLE.
[2018-08-21] MEDS: MIDAZOLAM DRIP 50 mg/50mL 50 ML IV SCH (12:47)
--- NOTE | 2018-08-21 13:36 | NUR ---
FIRST UNIT FFP TRANSFUSING VSS AND DOCUMENTED, WILL MONITOR FOR S/S OF TRANSFUSION REACTION. FAMILY AT BEDSIDE.
--- NOTE | 2018-08-21 14:06 | NUR ---
TRANSFUSION ASSESSMENT VSS AND DOCUMENTED, NO S/S NOTED TRANSFUSION REACTION. FAMILY AT BEDSIDE.
[2018-08-21 14:59] LABS: Monocytes # (auto) 0.1 uL; Monocytes % (auto) 1.1 % (0.0-12.0); Platelet Count (auto) 56 10^3/uL (140-450)
--- NOTE | 2018-08-21 15:14 | NUR ---
ONE UNIT FFP TRANSFUSION COMPLETE VSS AND DOCUMENTED. NO S/S NOTED OF TRANSFUSION REACTION.
--- NOTE | 2018-08-21 15:17 | NUR ---
PATIENT TURN/LOW TEMP PATIENT TURNED TO LEFT SIDE WITH HOB ELEVATED 30 DEGREES, UNABLE TO COMPLETELY TURN TO MONITOR SACRUM DUE TO INSTABILITY. CONTINUED INCREASED BRIGHT RED BLOOD DRAINING FROM LEFT NOSTRIL AND NGT. PATIENT CLEANSED AND WILL BE MONITORED. BEAR HUGGER IN PLACE, PATIENT'S RECTAL TEMPERATURE 97.2. WILL MONITOR. FAMILY AT BEDSIDE.
[2018-08-21 15:18] LABS: Basophils % (auto) 0.9 % (0.0-2.0); Eosinophils % (auto) 1.1 % (0.0-7.0); Lymphocytes % (auto) 2.7 % (10.0-50.0); Neutrophils % (auto) 94.2 % (37.0-80.0); White Blood Cell 12.9 10^3/uL (4.4-10.8)
[2018-08-21 15:24] LABS: Neutrophils # (auto) 12.2 uL
[2018-08-21 15:25] LABS: Basophils # (auto) 0.1 uL; Eosinophils # (auto) 0.1 uL; Hematocrit 20.6 % (41.0-53.0); Hemoglobin 7.1 g/dL (13.5-17.5); Lymphocytes # (auto) 0.4 uL; Mean Corpuscular Hemoglobin 30.5 pg (28.0-32.0); Mean Corpuscular Hgb Conc. 34.4 g/dL (32.0-36.0); Mean Corpuscular Volume 88.6 fL (80.0-100.0); Red Blood Cells 2.33 10^6/uL (4.5-5.90)
[2018-08-21 15:26] LABS: Red Cell Distribution Width 15.1 % (11.8-14.3)
--- NOTE | 2018-08-21 15:33 | NUR ---
SECOND UNIT FFP TRANSFUSING VSS AND DOCUMENTED. WILL MONITOR FOR S/S OF TRANSFUSION REACTION.
[2018-08-21] MEDS: NOREPINEPHRINE BITARTRATE 32 MG in D5W 5% 218 ML IV SCH (15:35)
--- NOTE | 2018-08-21 16:00 | NUR ---
TRANSFUSION REASSESSMENT VSS AND DOCUMENTED. NO S/S NOTED OF TRANSFUSION REACTION. PATIENT'S MOTHER AND FRIEND AT BEDSIDE.
[2018-08-21 16:09] LABS: INR > 8.0 (0.9-1.15)
--- NOTE | 2018-08-21 17:08 | NUR ---
SECOND UNIT FFP TRANSFUSION COMPLETE VSS AND DOCUMENTED. NO S/S NOTED OF TRANSFUSION REACTION. DIEGO DUMONT DISCONTINUED - CURRENT RECTAL TEMPERATURE 98.2.
[2018-08-21] MEDS: VASOPRESSIN 50 UNITS in D5W 5% 247.5 ML IV SCH (18:15)
--- NOTE | 2018-08-21 18:55 | NUR ---
PAGED DR CHASE TO NOTIFY OF CURRENT SATURATION 87-90% ON 100% FIO2, MESSAGE LEFT WITH ANSWERING SERVICE-AWAITING RESPONSE.
--- NOTE | 2018-08-21 19:13 | NUR ---
END OF SHIFT NOTE CONTINUED MECHANICALLY VENTILATED, NO CHANGE ON DRIPS, NON RESPONSIVE, CONTINUED BLEEDING. MULTIPLE FAMILY MEMBERS AT BEDSIDE THROUGHOUT SHIFT. FAMILY UPDATED ON PATIENT STATUS AT ALL TIMES. PENDING RETURN CALL FROM DR CHASE. ENDORSED CONTINUED CARE TO SLP TEACHER RN.
--- NOTE | 2018-08-21 19:42 | NUR ---
RETURN CALL FROM DR CHASE UPDATED ON SATURATION AND VENT SETTINGS. ORDERS TO INCREASE PEEP TO 7 OR 8 WITH NO REPEAT ABG. VIKKI SAENZ. AWARE AND ENDORSED CARE.
--- NOTE | 2018-08-21 21:31 | NUR ---
PAGING DR. CHASE RE: O2 SATS 79-83% CONSISTENTLY; NO MORE CHANGE TO VENTILATOR SETTINGS PER DR. CHASE; PT. HIGH RISK FOR PNEUMOTHORAX IF KEEP INCREASING PEEP; WILL CONT. TO MONITOR.
[2018-08-22] VITALS (107 sets, daily range): BP systolic 80–121; BP diastolic 34–65
[2018-08-22] MEDS: IPRATROPIUM BROM 0.5 MG/2.5ML INH SOL NEB SCH ×4 (00:31→18:33)
[2018-08-22] MEDS: ALBUTEROL SULF 2.5 MG/0.5ML(0.5%) NEB SOLN NEB SCH ×4 (00:31→18:33)
[2018-08-22] MEDS: DOPamine 1600MCG/ML D5W 250 ML IV SCH ×2 (01:15→15:30)
[2018-08-22] MEDS: OCTREOTIDE ACETATE 500 MCG in SODIUM CHL 0.9% 99 ML IV SCH ×3 (01:15→16:45)
[2018-08-22] MEDS: VASOPRESSIN 50 UNITS in D5W 5% 247.5 ML IV SCH ×6 (01:45→20:25)
[2018-08-22] MEDS ORDERED: VASOPRESSIN 20 UNIT/ML ONE ×3 (01:58→09:39)
[2018-08-22 06:10] LABS: Partial Thromboplastin Time 61.3 sec (23.64-32.05)
[2018-08-22 06:19] LABS: INR > 8.0 (0.9-1.15)
[2018-08-22 06:44] LABS: Basophils # (auto) 0 uL; Basophils % (auto) 0.1 % (0.0-2.0); Eosinophils # (auto) 0 uL; Eosinophils % (auto) 0.3 % (0.0-7.0); Hematocrit 22.1 % (41.0-53.0); Hemoglobin 7.3 g/dL (13.5-17.5); Lymphocytes # (auto) 0.4 uL; Lymphocytes % (auto) 2.7 % (10.0-50.0); Mean Corpuscular Hemoglobin 29.7 pg (28.0-32.0); Mean Corpuscular Hgb Conc. 33.2 g/dL (32.0-36.0); Mean Corpuscular Volume 89.4 fL (80.0-100.0); Monocytes # (auto) 0.3 uL; Monocytes % (auto) 2.3 % (0.0-12.0); Neutrophils # (auto) 13.6 uL; Neutrophils % (auto) 94.6 % (37.0-80.0); Nucleated Red Blood Cells % 0.8 %; Platelet Count (auto) 47 10^3/uL (140-450); Red Blood Cells 2.47 10^6/uL (4.5-5.90); White Blood Cell 14.4 10^3/uL (4.4-10.8)
[2018-08-22 06:50] LABS: Albumin 2.4 g/dL (3.4-5.0); Potassium 4.2 mmol/L (3.5-5.1)
[2018-08-22 07:14] LABS: BUN/Creatinine Ratio 6.8; Bilirubin, Total 6.1 mg/dL (0.2-1.0)
[2018-08-22 07:23] LABS: Calcium 5.4 mg/dL (8.5-10.1)
[2018-08-22] MEDS: ACCU-CHEK COMFORT CURVE STRIP VI SCH ×5 (08:00→20:46)
[2018-08-22] MEDS: InsuLIN REG 1unit/0.01ml Soln (100units/ml) SC SCH ×5 (08:00→20:47)
--- NOTE | 2018-08-22 08:00 | NUR ---
TURN AND POSITION; Patient is too unstable at this time to be repositioned. O2 saturations 70% on 100% FiO2. Patient with multiple vasopressors infusing, blood pressure maintaining 90's systolic. Addendum: 08/22/18 at 0915 by Dorcas Gayle RN Amended: Links added.
--- NOTE | 2018-08-22 08:15 | NUR ---
DIALYSIS AT BEDSIDE: Dialysis nurse at bedside, updated her on patient condition. Discussed vital signs trends as well as vasopressor therapy currently in place. Dialysis orders clarified by dialysis nurse with Dr. Cali, plan to proceed with dialysis as per orders.
--- NOTE | 2018-08-22 08:25 | NUR ---
AT BEDSIDE: Dr. Martin at bedside. Dr. Martin spoke with patient's and brother regarding patient's condition. Discussed with them that a repeat head CT would be ideal, however patient is not stable enough to tolerate transport. Discussed patient's poor prognosis as well as code status with family. At this time the patient's wishes to continue with full code status.
[2018-08-22] MEDS: SODIUM BICARBONATE 50ML VIAL 150 ML in SOD CHL 0.45% 1,000 ML IV SCH ×3 (08:30→16:15)
[2018-08-22] MEDS ORDERED: SODIUM CHL 0.9% 1000 ML BAG XX ONE (08:45)
--- NOTE | 2018-08-22 08:45 | NUR ---
VASOPRESSIN TITRATION: Blood pressure decreased during dialysis initiation, increased vasopressin to allow sufficient blood pressure for completion of dialysis.
--- NOTE | 2018-08-22 09:30 | NUR ---
AT BEDSIDE; Dr. Aponte at bedside, spoke with patient's informed her that bleeding issues have improved and that there is some improvement in liver function as per lab values. Dr. Aponte ordered for cryoprecipitate to be transfused.
--- NOTE | 2018-08-22 09:45 | NUR ---
BLOOD BANK CALL: Spoke with tech from blood bank, states that cryo has to be [facility] and that there will be a delay in availability of the product.
--- NOTE | 2018-08-22 10:00 | NUR ---
TURNING: Patient continues to be too unstable to be repositioned at this time, O2 saturations remain 77-78% on 100% FiO2. Hemodialysis currently in progress. Addendum: 08/22/18 at 1035 by Dorcas Gayle RN Amended: Links added.
--- NOTE | 2018-08-22 10:30 | NUR ---
SKIN CARE; Patient too unstable to be turned, barrier cream not applied. Addendum: 08/22/18 at 1031 by Dorcas Gayle RN Amended: Links added.
[2018-08-22] MEDS: EPINEPHrine HCL 250 ML IV SCH ×2 (10:50→18:14)
--- NOTE | 2018-08-22 11:41 | NUR ---
AT BEDSIDE: Dr. Baldwin at bedside. Updated on patient condition, states that at this time cardiology is going to sign off of the case as there is no interventions to be performed from the cardiac point of view. States to please reconsult if any issues cardiac issues arise.
[2018-08-22] MEDS: MULTIPLE VITAMIN 10 ML, MAGNESIUM SULF SDV 50% 8 MEQ, THIAMINE INJ 100 MG in SODIUM CHL... IV SCH (12:00)
--- NOTE | 2018-08-22 12:00 | NUR ---
TURNING: Patient continues to be too unstable to reposition. Attempt to slightly turn patient resulted in further decreased oxygen saturations to 70%. Continues to require high dosages of vasopressors.
--- NOTE | 2018-08-22 12:25 | NUR ---
WOUND CARE NOTE: IN TO SEE PATIENT FOR SKIN INTEGRITY AT THIS TIME. MULTIPLE FAMILY AT BEDSIDE. UNABLE TO ASSESS, PATIENT IS TOO UNSTABLE FOR TURNING/REPOSITIONING. PATIENT CONTINUES TO BE ON MULTIPLE DRIPS/VASOPRESSORS. UNABLE TO TRANSFER ONTO AN AIR BED, UNABLE TO ASSESS SKIN. WILL ATTEMPT TO SEE PATIENT AGAIN AT LATER TIME.
[2018-08-22] MEDS: PANTOPRAZOLE 40 MG/10 ML VIAL INJ IV SCH ×2 (12:30→22:28)
[2018-08-22] MEDS: MIDAZOLAM DRIP 50 mg/50mL 50 ML IV SCH (12:47)
[2018-08-22] MEDS: PIPERACILLIN-TAZOB 2.25GM 50 ML IV SCH ×2 (13:01→19:00)
--- NOTE | 2018-08-22 14:00 | NUR ---
TURNING: Patient continues to be too unstable to be repositioned. Continues to require high dosages of vasopressors and continues with hypoxia on 100% FiO2.
[2018-08-22 14:33] LABS: Basophils # (auto) 0 uL; Basophils % (auto) 0.1 % (0.0-2.0); Hemoglobin 7.9 g/dL (13.5-17.5); Monocytes # (auto) 0.5 uL; White Blood Cell 17.3 10^3/uL (4.4-10.8)
[2018-08-22 14:35] LABS: Eosinophils # (auto) 0.7 uL; Eosinophils % (auto) 3.9 % (0.0-7.0); Hematocrit 23.7 % (41.0-53.0); Lymphocytes # (auto) 0.8 uL; Lymphocytes % (auto) 4.8 % (10.0-50.0); Mean Corpuscular Hemoglobin 30.5 pg (28.0-32.0); Mean Corpuscular Hgb Conc. 33.5 g/dL (32.0-36.0); Monocytes % (auto) 3.2 % (0.0-12.0); Neutrophils # (auto) 15.2 uL; Nucleated Red Blood Cells % 2.9 %; Platelet Count (auto) 34 10^3/uL (140-450); Red Cell Distribution Width 15.8 % (11.8-14.3)
[2018-08-22 14:51] LABS: Albumin 2.3 g/dL (3.4-5.0); BUN/Creatinine Ratio 6.1
[2018-08-22 15:00] LABS: Total Protein 3.8 g/dL (6.4-8.2)
[2018-08-22] MEDS: CLINDAMYCIN 600MG IV 50 ML IV SCH ×2 (15:00→22:28)
[2018-08-22 15:34] LABS: Calcium 5.2 mg/dL (8.5-10.1)
--- NOTE | 2018-08-22 16:00 | NUR ---
TURNING: Patient remains too unstable to reposition, continues to require high dosages of vasopressors and is hypoxic on 100% FiO2.
[2018-08-22] MEDS: NOREPINEPHRINE BITARTRATE 32 MG in D5W 5% 218 ML IV SCH (16:23)
--- NOTE | 2018-08-22 18:00 | NUR ---
TURNING: Patient remains too unstable to reposition, continues to require high dosages of vasopressors and is hypoxic on 100% FiO2.
--- NOTE | 2018-08-22 20:00 | NUR ---
PT. TOO UNSTABLE TO TURN; WILL CONT. TO MONITOR.
[2018-08-22] MEDS ORDERED: EPOETIN ALFA 10,000 UNIT/1 ML VIAL SC ONE (21:00)
[2018-08-22] MEDS: ARTIFICIAL TEAR OPTH(EYE) OINT 3.5GM EACHEYE SCH (21:20)
[2018-08-22] MEDS: PHENYLEPHRINE INJ 80 MG in D5W 5% 250 ML IV SCH (22:10)
[2018-08-23] VITALS (66 sets, daily range): BP systolic 66–102; BP diastolic 20–50
[2018-08-23] MEDS: PIPERACILLIN-TAZOB 2.25GM 50 ML IV SCH ×3 (00:04→12:31)
[2018-08-23] MEDS: ACCU-CHEK COMFORT CURVE STRIP VI SCH ×4 (00:04→12:00)
[2018-08-23] MEDS: ARTIFICIAL TEAR OPTH(EYE) OINT 3.5GM EACHEYE SCH (00:07)
[2018-08-23] MEDS: EPINEPHrine HCL 250 ML IV SCH ×2 (00:08→13:08)
[2018-08-23] MEDS: IPRATROPIUM BROM 0.5 MG/2.5ML INH SOL NEB SCH ×3 (00:16→13:15)
[2018-08-23] MEDS: ALBUTEROL SULF 2.5 MG/0.5ML(0.5%) NEB SOLN NEB SCH ×3 (00:16→13:15)
[2018-08-23] MEDS: InsuLIN REG 1unit/0.01ml Soln (100units/ml) SC SCH ×4 (04:00→12:00)
[2018-08-23 04:14] LABS: Basophils # (auto) 0 uL; Basophils % (auto) 0.2 % (0.0-2.0); Eosinophils % (auto) 6.6 % (0.0-7.0); Hemoglobin 7.5 g/dL (13.5-17.5); Lymphocytes # (auto) 1.3 uL; Lymphocytes % (auto) 8.4 % (10.0-50.0); Mean Corpuscular Hemoglobin 31.4 pg (28.0-32.0); Mean Corpuscular Hgb Conc. 34.2 g/dL (32.0-36.0); Mean Corpuscular Volume 91.9 fL (80.0-100.0); Monocytes # (auto) 0.6 uL; Monocytes % (auto) 3.6 % (0.0-12.0); Neutrophils # (auto) 12.8 uL; Neutrophils % (auto) 81.2 % (37.0-80.0); Platelet Count (auto) 56 10^3/uL (140-450); Red Blood Cells 2.39 10^6/uL (4.5-5.90); Red Cell Distribution Width 16.5 % (11.8-14.3); White Blood Cell 15.8 10^3/uL (4.4-10.8)
[2018-08-23 04:15] LABS: Nucleated Red Blood Cells % 4.5 %
[2018-08-23] MEDS: CLINDAMYCIN 600MG IV 50 ML IV SCH ×2 (06:12→15:00)
[2018-08-23] MEDS: DOPamine 1600MCG/ML D5W 250 ML IV SCH (07:24)
--- NOTE | 2018-08-23 08:15 | NUR ---
AT BEDSIDE: Dr. Martin at bedside, spoke with patient's brother Zeeshan. Informed him that patient remains too unstable to take to CT, also informed them that there has been no improvement in patient condition and that the patient has worsened overnight.
--- NOTE | 2018-08-23 08:30 | NUR ---
DECREASED BP: Patient's blood pressure decreased to 79/27, increased vasopressin drip to 0.6 units. Monitor effect.
--- NOTE | 2018-08-23 08:44 | NUR ---
AT BEDSIDE: Dr. Vishal Pitts at bedside, reviewed ABG. No further orders at this time.
[2018-08-23] MEDS: OCTREOTIDE ACETATE 500 MCG in SODIUM CHL 0.9% 99 ML IV SCH ×2 (09:08→12:45)
[2018-08-23] MEDS: VASOPRESSIN 50 UNITS in D5W 5% 247.5 ML IV SCH ×2 (09:09→11:26)
[2018-08-23 09:19] LABS: Albumin 2.2 g/dL (3.4-5.0); Anion Gap 30 (5-15); BUN/Creatinine Ratio 6.1; Blood Urea Nitrogen 39 mg/dL (7-18); Carbon Dioxide 17 mmol/L (21-32); Chloride 87 mmol/L (98-107); GFR African American 12 mL/min; GFR Non-African American 10 mL/min; Glucose 150 mg/dL (74-106); Potassium 4.7 mmol/L (3.5-5.1); Sodium 134 mmol/L (136-145)
[2018-08-23 09:28] LABS: Alkaline Phosphatase 131 U/L (45-117); Total Protein 3.7 g/dL (6.4-8.2)
[2018-08-23 09:41] LABS: Alanine Aminotransferase 3846 U/L (16-61)
--- NOTE | 2018-08-23 10:00 | NUR ---
SKIN CARE/TURNING: Unable to apply barrier cream as part of skin care. Patient remains too unstable to be repositioned at this time, remains hypoxic on 100% FiO2 and continues to have increasing needs for vasopressors. Addendum: 08/23/18 at 1144 by Dorcas Gayle RN Amended: Links added.
--- NOTE | 2018-08-23 10:15 | NUR ---
UPDATED; Patient's Jacquie at bedside. Discussed with her that the patient has begun having episodes of decreased blood pressure with the lowest reading being a systolic blood pressure in the 70's, informed her that there is little room to increase vasopressors as 3 of the 4 are at maximum dosages at this time. Also discussed with her inability to safely take patient for repeat CT head as the arterial oxygen levels are too low. Jacquie verbalize understanding.
[2018-08-23] MEDS: PANTOPRAZOLE 40 MG/10 ML VIAL INJ IV SCH (10:18)
[2018-08-23 10:21] LABS: Aspartate Aminotransferase 4771 U/L (15-37)
[2018-08-23 10:23] LABS: Calcium < 5.0 mg/dL (8.5-10.1)
[2018-08-23] MEDS ORDERED: CALCIUM GLUC 4.65meq/50ml D5AE 50 ML IV ONE (11:00)
--- NOTE | 2018-08-23 11:35 | NUR ---
AT BEDSIDE: Dr. Menendez at bedside, updated him on events through the night. Only 30 mL of blood from NGT for the plant operator/shift supervisor. Only new order at this time is to repeat coagulation studies in the morning.
--- NOTE | 2018-08-23 12:30 | NUR ---
WOUND CARE NOTE: IN TO ASSESS PATIENT'S SKIN AT THIS TIME. PATIENT CONTINUES TO BE TOO UNSTABLE FOR TURNING/REPOSITIONING. PATIENT TOO UNSTABLE TO TRANSFER ONTO A SPECIALTY AIR BED AT THIS TIME. HE IS NOTED TO HAVE AN INTACT SERUM FILLED BLISTER OVER PURPLE ECCHYMOSIS TO THE LEFT HEEL, MEASURING 5 X 5 CM. SKIN IS INTACT, PURPLE. PERIWOUND IS PINK. BOTH FEET/HEELS ARE ELEVATED/OFFLOADED ON PILLOWS. RECOMMEND: ADD IVAN FOAM BOOTS TO BILATERAL FEET/LEGS. DO NOT CROSS VELCRO STRAPS OVER FOREFOOT, AVOIDING PRESSURE TO TOES. WOUND CARE TEAM WILL CONTINUE TO MONITOR. Addendum: 08/23/18 at 1620 by Maddie Castro RN Amended: Links added.
[2018-08-23] MEDS ORDERED: CALCIUM CHL 100MG/ML 1,000 MG in D5W 5% 100 ML IV ONE (12:45)
[2018-08-23] MEDS: MIDAZOLAM DRIP 50 mg/50mL 50 ML IV SCH (12:47)
[2018-08-23] MEDS ORDERED: TPN PER PHARMACY 0 ML IV SCH (13:00)
[2018-08-23 13:28] LABS: Magnesium 2.1 mg/dL (1.6-2.6)
[2018-08-23 13:38] LABS: Pre Albumin 7.5 mg/dL (20.0-40.0)
[2018-08-23 13:46] LABS: Phosphorus 10.7 mg/dL (2.5-4.90)
[2018-08-23] MEDS ORDERED: VASOPRESSIN 100 UNITS in D5W 5% 495 ML IV SCH (14:45)
--- NOTE | 2018-08-23 14:56 | NUR ---
Nutrition Follow-up Notes Wt.: 136.6 kg as of yesterday. Pt remains intubated, remains NPO, noted to start on dialysis and likely to start also on PN support tonight, however no specific order yet in Meds list at this time. Noted pt's for active [facility]/Oncology consult. Est. Needs based on ASPEN guidelines (136.6 k kcal to 1900 kcal (11-14 kcal/kgBW), 101 gms to 168 gms pro (1.2-2.0 gm/kgIBW : 84 kg). Will continue to monitor pertinent labs and reassess nutrient need prn Labs: POC Gluc , BUN , Tpro , Alb Skin: Godwin scale , mod risk, skin intact per lease examiner. GI: Pt had BM this morning per lease examiner. PES: Altered nutrition related lab values r/t acute/chronic medical condition aeb hyperglycemia, elev. renal labs Increased nutrient needs r/t current/chronic medical condition aeb Obesity r/t food intake more than body requirement aeb 206% IBW, BMI 42.9 kg/m2 and increased body adiposity Will continue to monitor PO intake, skin status, pertinent labs and weight trend. F/u in 3 to 5 days. Rec.: 1.) Continue close supervision during meals. 2.) If Albumin level continues trending down, consider Prostat 1 pkt BID. 3.) Refer pt to CDE/RD for further nutrition education and weight monitoring upon discharge. 4.) Continue current plan of care. Addendum: 08/23/18 at [address] WRONG PATIENTS: PLEASE DISREGARD ABOVE NUTRITION ASSESSMENT Thank you
--- NOTE | 2018-08-23 15:08 | NUR ---
Nutrition Follow-up Notes: Wt.: 136.6 kg today. Noted 4.6 kg weight gain in last 2 days likely d/t ? fluid retention aeb positive I & Os for past few days. Pt remains intubated, currently NPO, noted likely to start on dialysis and PN support tonight, however no specific order yet in Meds list at this time. Noted pt's for active [facility]/Oncology and Nephrology consults. Est. Needs based on ASPEN guidelines (137 kg): 1500 kcal to 1900 kcal (11-14 kcal/kgBW), 101 gms to 185 gms pro (1.2-2.2 gm/kgIBW : 84 kg). Will continue to monitor pertinent labs and reassess nutrient need prn Labs: Gluc 150 H, Na 134 L, Cl 87 L, CO2 17 L, BUN 39 H, Cr 6.39 H, Phos 10.7 H, Tot ellie 11.0 H, AST 4771 H, ALT 3846 H, ALP 131 H, Tpro 3.7 L, Alb 2.2 L, Prealb 7.5 L, Trig 118 wnl Skin: Godwin scale 10, high risk, skin intact per data services developer. GI: Pt had 3x BM yesterday per data services developer. PES: Altered nutrition related lab values r/t acute/chronic medical condition aeb hyperglycemia, hypocapnia, hypochloremia, elev. renal labs,LFTs, ammonia, hyperbilirubinemia, hypocalcemia and severe hypoalbuminemia Increased nutrient needs r/t current/chronic medical condition aeb intubated, sedated, severe hypoalbuminemia, NPO. Obesity r/t food intake more than body requirement aeb 148% IBW, BMI 30.8 kg/m2 and increased body adiposity Will continue to monitor NPO status, skin status, pertinent labs and weight trend. F/u in 2 to 3 days. Rec.: 1.) If still NPO with PN support, consider meeting at least 75% of est nutrient needs. 2.) Advance gradually to oral diet or consider EN support with formula choice of Nephro Carb Steady @ 50 ml/hr goal rate as tolerated, if pt's on dialysis. 3.) Refer to RD for further nutrition education and weight monitoring upon discharged. 4.) Continue current plan of care.
--- NOTE | 2018-08-23 15:31 | NUR ---
[facility]; Cardiac [facility]ACE called to [facility], spoke with Yung. States patient is possible tissue donor, [facility] to follow up.
--- NOTE | 2018-08-23 15:37 | NUR ---
PRODUCT MANAGEMENT ANALYST: Call placed to [facility] to report , patient information given, will await return call.
--- NOTE | 2018-08-23 18:20 | NUR ---
SUPPORT SERVICES COORDINATOR: Received return call from portfolio manager's office, spoke with Ruperto Garvin. Patient information reviewed, patient is released by portfolio manager. Case #[id number]
[2018-08-23] MEDS ORDERED: SODIUM BICARBONATE 8.4% INJ 50ML SYRINGE IV ONE (19:28)
[2018-08-23] MEDS ORDERED: ATROPINE SULF 1 MG/10ml SYR IV ONE (19:28)
[2018-08-23] MEDS ORDERED: EPINEPHrine HCL 1 MG/10 ML SYRG IV ONE (19:28)
== END 2018-08-23 21:30 | disposition expired | DRG 207 ==
LOC: ER 11:47 → EDBD 11:47 → ICU WEST 16:16
PROVIDERS: ADMIT Internal Medicine; ATTEND Internal Medicine
PROC: 5A1955Z Respiratory Ventilation, Greater than 96 Consecutive Hours (ICD-10-PCS; principal; 2018-08-19)
PROC: 0BH17EZ Insertion of Endotracheal Airway into Trachea, Via Natural or Artificial Opening (ICD-10-PCS; 2018-08-19)
PROC: 5A1935Z Respiratory Ventilation, Less than 24 Consecutive Hours (ICD-10-PCS; 2018-08-19)
PROC: 5A12012 Performance of Cardiac Output, Single, Manual (ICD-10-PCS; 2018-08-19)
PROC: 30233K1 Transfusion of Nonautologous Frozen Plasma into Peripheral Vein, Percutaneous Approach (ICD-10-PCS; 2018-08-19)
PROC: 30233N1 Transfusion of Nonautologous Red Blood Cells into Peripheral Vein, Percutaneous Approach (ICD-10-PCS; 2018-08-19)
PROC: 02HV33Z Insertion of Infusion Device into Superior Vena Cava, Percutaneous Approach (ICD-10-PCS; 2018-08-20)
PROC: 30233R1 Transfusion of Nonautologous Platelets into Peripheral Vein, Percutaneous Approach (ICD-10-PCS; 2018-08-20)
PROC: 5A1D70Z Performance of Urinary Filtration, Intermittent, Less than 6 Hours Per Day (ICD-10-PCS; 2018-08-20)
PROC: 5A1D70Z Performance of Urinary Filtration, Intermittent, Less than 6 Hours Per Day (ICD-10-PCS; 2018-08-22)
PROC: 5A12012 Performance of Cardiac Output, Single, Manual (ICD-10-PCS; 2018-08-23)
DX: J96.00 Acute respiratory failure, unspecified whether with hypoxia or hypercapnia (principal); J69.0 Pneumonitis due to inhalation of food and vomit; N17.0 Acute kidney failure with tubular necrosis; K72.00 Acute and subacute hepatic failure without coma; G93.6 Cerebral edema; D65 Disseminated intravascular coagulation [defibrination syndrome]; G93.1 Anoxic brain damage, not elsewhere classified; K92.2 Gastrointestinal hemorrhage, unspecified; M62.82 Rhabdomyolysis; K56.7 Ileus, unspecified; D68.59 Other primary thrombophilia; I46.9 Cardiac arrest, cause unspecified; E86.1 Hypovolemia; F15.90 Other stimulant use, unspecified, uncomplicated; R00.1 Bradycardia, unspecified; D64.9 Anemia, unspecified; I95.9 Hypotension, unspecified; K52.9 Noninfective gastroenteritis and colitis, unspecified; H57.04 Mydriasis; E66.9 Obesity, unspecified; F17.200 Nicotine dependence, unspecified, uncomplicated; G47.33 Obstructive sleep apnea (adult) (pediatric); K76.0 Fatty (change of) liver, not elsewhere classified; N18.9 Chronic kidney disease, unspecified; Z79.899 Other long term (current) drug therapy; Z83.3 Family history of diabetes mellitus; Z87.442 Personal history of urinary calculi; Z82.49 Family history of ischemic heart disease and other diseases of the circulatory system; Z68.39 Body mass index [BMI] 39.0-39.9, adult
CPT/HCPCS: 31500; 36415; 36556; 36600; 70450; 71045; 71250; 74176; 76705; 80053; 80307; 80320; 81001; 82040; 82140; 82150; 82550; 82805; 82962; 83605; 83615; 83690; 83735; 84100; 84478; 84484; 85007; 85014; 85018; 85025; 85027; 85045; 85384; 85610; 85730; 86850; 86900; 86901; 86920; 87040; 87070; 87081; 87205; 92950; 93005; 93306; 94002; 94003; 94640; 95819; 96365; 96375; 96376; 99291; C9113; G0378; J0171; J0610; J0885; J1642; J1815; J2250; J2543; J3430; J3490; J7060; P9047